=== PATIENT | female | born 1945 ===

== ENCOUNTER 2018-02-07 11:25 | Emergency (ER) | payer SELFPAY ==
[2018-02-07] MEDS ORDERED: metFORMIN 500 MG TAB PO SCH (12:00)
== END 2018-02-07 12:13 | disposition home or self-care (01) ==
LOC: ERS 11:25
DX: I83.891 Varicose veins of right lower extremity with other complications (principal); E11.9 Type 2 diabetes mellitus without complications; I10 Essential (primary) hypertension; Z79.84 Long term (current) use of oral hypoglycemic drugs
CPT/HCPCS: 36416; 99283